=== PATIENT | male | born 1985 | race Caucasian/White ===

== ENCOUNTER 2016-11-27 19:46 | Emergency (ER) | payer OTHER ==
[~2016-11-27] VITALS: Ht 170.2 cm; Wt 86.7 kg
[~2016-11-27 19:46] MED LIST: IBUP200T5 PO; None per pt
[2016-11-27] MEDS ORDERED: FLUORESCEIN OPHTHALMIC 1 MG STRIP EACHEYE ONE (20:30)
[2016-11-27] MEDS ORDERED: PROPARACAINE OPHTH 0.5%, 15ML EACHEYE ONE (20:30)
[2016-11-27] MEDS ORDERED: FLUORESCEIN OPHTHALMIC 1 MG STRIP ONE (20:34)
[2016-11-27] MEDS ORDERED: PROPARACAINE OPHTH 0.5%, 15ML ONE (20:35)
[2016-11-27 22:11] VITALS: BP 132/74
== END 2016-11-27 22:13 | disposition home or self-care (01) ==
LOC: ED 20:44
DX: T15.01XA Foreign body in cornea, right eye, initial encounter (principal); X58.XXXA Exposure to other specified factors, initial encounter; Y93.89 Activity, other specified; Y92.89 Other specified places as the place of occurrence of the external cause; Y99.8 Other external cause status
CPT/HCPCS: 99284